=== PATIENT | female | born 1970 | race African-American/Black ===

== ENCOUNTER 2016-10-27 12:02 | Emergency (ER) | payer OTHER ==
[2016-10-27 12:10] VITALS: TEMP 98.4; BMI 30.9
[2016-10-27] MEDS ORDERED: KETOROLAC TROMETHAMINE 30 MG/1 ML VIAL IVPUSH ONE (13:40)
--- NOTE | 2016-10-27 13:40 | PDOC ---
History of Present Illness - History of Present Illness Initial Comments: 10/27/16 14:54 Patient is a 46 year old female with significant medical hx of HTN (currently untreated) who is presenting to the ED with lower back pain after cleaning three days ago. The patient complains of lower back pain that is localized to both sides of her lower back but is otherwise non-radiating. She reports it is constant that worsens with movement, including sitting down, standing up, and walking. The patient states that shes so uncomfortable she cant sit on the bed and had difficulty getting to and from the bathroom earlier today. Patient has taken aleve for her pain with little relief. Denies any dysuria, hematuria, fever, chills, abdominal pain, nausea, vomiting, diarrhea, and recent trauma. Patient notes that this happened to her in the past one year ago after cleaning a house but it wasnt as bad as it is now. The patient also reports she hasnt taken her medication for hypertension for the past two months because the medication caused her to lose her hair. Patient s blood pressure upon repeat vitals were 166/119. Social Hx: Occasional tobacco use and alcohol use. <Mari Rodas - Last Filed: 10/27/16 14:53> - General History Source: Patient, Old Records Exam Limitations: No Limitations <Gunjan Leggett - Last Filed: 10/27/16 16:53> - General Chief Complaint: Back Pain Stated Complaint: BACK PAIN/HIGH BP 210/127 Time Seen by Provider: 10/27/16 12:26 Past History <Mari Rodas - Last Filed: 10/27/16 14:53> - Past Medical History Diabetes: Yes (PRE-DIABETIC: 2011) HTN: Yes - Surgical History Abdominal Surgery: Yes (LEEP) - Psycho/Social/Smoking Cessation Hx Anxiety: No Suicidal Ideation: No Smoking History: Current some day smoker Have you smoked in the past 12 months: Yes Number of Cigarettes Smoked Daily: 2 Information on smoking cessation initiated: Yes 'Breaking Loose' booklet given: 10/27/16 Hx Alcohol Use: No Drug/Substance Use Hx: No Substance Use Type: None <Gunjan Leggett - Last Filed: 10/27/16 16:53> - Past Medical History Allergies/Adverse Reactions: Allergies Allergy/AdvReac Type Severity Reaction Status Date / Time No Known Allergies Allergy Verified 10/27/16 12:03 Home Medications: Ambulatory Orders Cyclobenzaprine HCl [Flexeril 10 mg] 10 mg PO BID PRN #14 tablet 10/27/16 Nifedipine [Procardia Xl] 30 mg PO DAILY #30 tab.er.24 10/27/16 Review of Systems - Review of Systems Comments:: 10/27/16 14:54 GENERAL/CONSTITUTIONAL: No fever or chills. No weakness. HEAD, EYES, EARS, NOSE AND THROAT: No change in vision. No ear pain or discharge. No sore throat. CARDIOVASCULAR: No chest pain or shortness of breath. RESPIRATORY: No cough, wheezing, or hemoptysis. GASTROINTESTINAL: No nausea, vomiting, diarrhea or constipation. GENITOURINARY: No dysuria, frequency, or change in urination. MUSCULOSKELETAL: Lower back pain. No joint or muscle swelling or pain. No neck pain. ENDOCRINE: No increased thirst. No abnormal weight change. SKIN: No rash NEUROLOGIC: No headache, vertigo, loss of consciousness, or change in strength/ sensation. <Mari Rodas - Last Filed: 10/27/16 14:53> *Physical Exam - Vital Signs Last Vital Signs Temp Pulse Resp BP Pulse Ox 98.4 F 71 18 210/127 100 10/27/16 12:04 10/27/16 12:04 10/27/16 12:04 10/27/16 12:04 10/27/16 12:04 - Physical Exam Comments: 10/27/16 14:55 GENERAL: Awake, alert, and fully oriented, in no acute distress HEAD: No signs of trauma EYES: PERRLA, EOMI, sclera anicteric, conjunctiva clear ENT: Auricles normal inspection, hearing grossly normal, nares patent, oropharynx clear without exudates. Moist mucosa NECK: Normal ROM, supple, no lymphadenopathy, JVD, or masses LUNGS: Breath sounds equal, clear to auscultation bilaterally. No wheezes, and no crackles HEART: Regular rate and rhythm, normal S1 and S2, no murmurs, rubs or gallops ABDOMEN: Soft, nontender, normoactive bowel sounds. No guarding, no rebound. No masses EXTREMITIES: Normal range of motion, no edema. No clubbing or cyanosis. No cords, erythema, or tenderness MUSCULOSKELETAL:Tenderness to palpation of the lower back just above gluteal muscles. No bony abnormalities, no crepitus. NEUROLOGICAL: Cranial nerves II through XII grossly intact. Normal speech, normal gait SKIN: Warm, Dry, normal turgor, no rashes or lesions noted. HEMATOLOGIC/LYMPHATIC: No anemia, easy bleeding, or history of blood clots. ALLERGIC/IMMUNOLOGIC: No hives or skin allergy. <Mari Rodas - Last Filed: 10/27/16 14:53> - Vital Signs Last Vital Signs Temp Pulse Resp BP Pulse Ox 98.4 F 71 18 210/127 100 10/27/16 12:04 10/27/16 12:04 10/27/16 12:04 10/27/16 12:04 10/27/16 12:04 <Gunjan Leggett - Last Filed: 10/27/16 16:53> ED Treatment Course - Medications Given in the ED: ED Medications Discontinued Medications Generic Name Dose Route Start Last Admin Trade Name Freq PRN Reason Stop Dose Admin Ketorolac Tromethamine 30 mg 10/27/16 13:40 10/27/16 14:42 Toradol Injection - IVPUSH 10/27/16 13:41 30 mg ONCE ONE Administration <Mari Rodas - Last Filed: 10/27/16 14:53> - LABORATORY CBC & Chemistry Diagram: 10/27/16 14:55 10/27/16 14:55 <Gunjan Leggett - Last Filed: 10/27/16 16:53> Medical Decision Making - Medical Decision Making 10/27/16 13:42 46 y/o female with h/o [id number] with meds-presents to the ED with c/o atraumatic LBP and is found to be markedly hypertensive. DDx includes but is not limited to: muscle spasm, disc herniation, renal failure, electrolyte abnormality. Plan: 1. Baseline labs 2. Pain management 3. BP control 4. Observe and re-evaluate 10/27/16 16:49 Addendum: Labs were reviewed and are noted in the EMR. The patient received toradol is a small amount of relief. Procardia XL 30mg was given in the ED. The patient will be discharged home with Rx for flexeril and procardia XL. I have stressed the importance of follow-up with her PCP within the next week for BP monitoring. Return to the ED if Sx persist, worsen or new Sx arise. <Gunjan Leggett - Last Filed: 10/27/16 16:53> *DC/Admit/Observation/Transfer - Attestations Scribe Attestion: 10/27/16 14:57 Documentation prepared by Mari Rodas, acting as medical science liaison for Gunjan Leggett MD. <Mari Rodas - Last Filed: 10/27/16 14:53> - Discharge Dispostion Admit: No - Attestations Physician Attestion: 10/27/16 13:43 I, Dr. Gunjan Leggett, attest that the scribes documentation that appears above has been prepared under my direction and personally reviewed by me in its entirety. I confirmed that the note above accurately reflects all work, treatment, procedures, and medical decision-making performed by me. <Gunjan Leggett - Last Filed: 10/27/16 16:53> Diagnosis at time of Disposition: Low back pain, Hypertension - Discharge Dispostion Disposition: HOME Condition at time of disposition: Stable - Prescriptions Prescriptions: Cyclobenzaprine HCl [Flexeril 10 mg] 10 mg PO BID PRN #14 tablet PRN Reason: Pain Level 6-10 Nifedipine [Procardia Xl] 30 mg PO DAILY #30 tab.er.24 - Referrals Referrals: Anitha Cardenas MD [Primary Care Provider] - - Patient Instructions Printed Discharge Instructions: DI for Malignant Hypertension, DI for Low Back Pain Additional Instructions: Your blood pressure is markedly elevated. You are being prescribed procardia XL 30mg--take one tablet daily and follow-up with your primary carephysician within one week. Return to the ED if your symptoms persist, worsen or new symptoms arise.
[2016-10-27] MEDS ORDERED: NIFEdipine E.R. 30 MG TABLET (FP) PO SCH (13:45)
[2016-10-27] MEDS ORDERED: KETOROLAC TROMETHAMINE 30 MG/1 ML VIAL ONE (14:40)
[2016-10-27 14:55] VITALS: BP 168/90; PULSE 67
[2016-10-27 15:07] LABS: BASOPHIL 0.4 % (0-2.0); EOSINOPHIL 0.8 % (0-4.5); MCH 29.8 pg (25.7-33.7); MEAN CELL VOLUME 90.4 fl (80-96); MEAN PLT VOLUME 7.7 fl (7.5-11.1); PLATELET COUNT 280 K/MM3 (134-434)
[2016-10-27 15:29] LABS: COCKROFT - GAULT 98.5235; CREATININE 0.9 mg/dL (0.55-1.02)
[2016-10-27] MEDS ORDERED: CYCLOBENZAPRINE HCL 10 MG TABLET (FP) PO ONE (16:43)
[2016-10-27] MEDS ORDERED: CYCLOBENZAPRINE HCL 10 MG TABLET (FP) ONE (17:24)
--- NOTE | 2016-11-04 14:43 | EKG ---
Test Reason : Blood Pressure : / mmHG Vent. Rate : 076 BPM Atrial Rate : 076 BPM P-R Int : 200 ms QRS Dur : 096 ms QT Int : 422 ms P-R-T Axes : 040 030 042 degrees QTc Int : 474 ms NORMAL SINUS RHYTHM POSSIBLE LEFT ATRIAL ENLARGEMENT BORDERLINE ECG NO PREVIOUS ECGS AVAILABLE Confirmed by CHAN COOK MD ([id number]) on 11/04/2016 2:43:17 PM Referred By: Confirmed By:CHAN COOK MD
== END 2016-10-27 18:12 | disposition home or self-care (01) ==
LOC: JER 12:02
PROC: 3E0333Z Introduction of Anti-inflammatory into Peripheral Vein, Percutaneous Approach (ICD-10-PCS; principal; 2016-10-27)
DX: M54.5 Low back pain (principal); I10 Essential (primary) hypertension; F17.210 Nicotine dependence, cigarettes, uncomplicated
CPT/HCPCS: 36415; 80048; 85025; 93005; 93010; 96374; 99282-25

== ENCOUNTER 2017-01-05 18:59 | Emergency (ER) | payer OTHER ==
[2017-01-05 19:18] VITALS: BP 156/102; PULSE 102; TEMP 98.2; BMI 41.4
--- NOTE | 2017-01-05 21:06 | PDOC ---
History of Present Illness - General Chief Complaint: Pain Stated Complaint: BACK PAIN Time Seen by Provider: 01/05/17 21:05 History Source: Patient Exam Limitations: No Limitations - History of Present Illness Initial Comments: 01/05/17 21:30 46F with pmh of chronic lower back pain and HTN presents with new 4 days-old exacerbation of her lower back pain radiating to her left leg to above the back of the knee. She was helping her sister lifting some light objects when the pain was triggered. The patient rates the pain 10/10 and has to stay bent over to mediate the intensity of the pain. Took a neighbor's percocet yesterday "which didn't do anything, 3xaleve today and an "unknown purple pill which may be morphine, 30mg" from her sister this morning. Patient is on Cyclobenzaprine 10mg (took one today) and lisinopril but only takes it every two days because she complains it makes her hair fall off like other blood pressure medications. Past History - Past Medical History Allergies/Adverse Reactions: Allergies Allergy/AdvReac Type Severity Reaction Status Date / Time No Known Allergies Allergy Verified 01/05/17 19:15 Home Medications: Ambulatory Orders Cyclobenzaprine HCl [Flexeril 10 mg] 10 mg PO BID PRN #14 tablet 10/27/16 Nifedipine [Procardia Xl] 30 mg PO DAILY #30 tab.er.24 10/27/16 Methocarbamol [Robaxin -] 500 mg PO BID #14 tablet 01/06/17 Diabetes: Yes (PRE-DIABETIC: 2011) HTN: Yes - Surgical History Abdominal Surgery: Yes (LEEP) - Psycho/Social/Smoking Cessation Hx Anxiety: No Suicidal Ideation: No Smoking History: Current every day smoker Have you smoked in the past 12 months: Yes Number of Cigarettes Smoked Daily: 10 Information on smoking cessation initiated: No 'Breaking Loose' booklet given: 10/27/16 Hx Alcohol Use: Yes Drug/Substance Use Hx: Yes (Marijuana) Substance Use Type: None Review of Systems - Review of Systems Constitutional: No: Symptoms Reported HEENTM: No: Symptoms Reported Respiratory: No: Symptoms reported Cardiac (ROS): No: Symptoms Reported ABD/GI: No: Symptoms Reported : No: Symptoms Reported Musculoskeletal: Yes: See HPI Integumentary: No: Symptoms Reported Neurological: No: Symptoms reported All Other Systems: Reviewed and Negative *Physical Exam - Vital Signs Last Vital Signs Temp Pulse Resp BP Pulse Ox 98.2 F 102 H 20 156/102 100 01/05/17 19:15 01/05/17 19:15 01/05/17 19:15 01/05/17 19:15 01/05/17 19:15 - Physical Exam General Appearance: Yes: Nourished, Appropriately Dressed, Obese. No: Mild Distress HEENT: positive: EOMI, [place], Normal ENT Inspection Neck: positive: Trachea midline. negative: Tender Respiratory/Chest: positive: Lungs Clear, Normal Breath Sounds. negative: Chest Tender Cardiovascular: positive: Regular Rhythm, Regular Rate, S1, S2 Musculoskeletal: positive: Muscle Spasm. negative: CVA Tenderness Extremity: positive: Normal Capillary Refill Medical Decision Making - Medical Decision Making 01/05/17 21:50 46F with pmh of sciatica and htn present with exacerbation of her lower back pain. Patient given 30mg toradol IV and 500mg robaxin PO. f/u with primary to get MRI done. Added 4mg morphine + robaxin rx 01/06/17 01:28 *DC/Admit/Observation/Transfer Diagnosis at time of Disposition: Ischiatic hernia - Discharge Dispostion Disposition: HOME Admit: No - Prescriptions Prescriptions: Methocarbamol [Robaxin -] 500 mg PO BID #14 tablet - Patient Instructions Printed Discharge Instructions: DI for Sciatica, Sciatica (Alternative Therapy)
--- NOTE | 2017-01-05 21:10 | PDOC ---
Attending Attestation - Resident Resident Name: PumaChuck - ED Attending Attestation I have performed the following: I have examined & evaluated the patient, The case was reviewed & discussed with the resident, I agree w/resident's findings & plan, Exceptions are as noted - HPI HPI: 46 yo F history prior low back pain presents with L low back pain x1 day. She states she was treated for the same a few months ago, responded well to NSAIDs. No recent trauma. No weakness, numbness. No recent fevers. She has flexeril from prior back pain, which did not help. She has followed up with her PMD outpatient, who recommended MRI, but she has not had it yet. - Physicial Exam PE: GENERAL: Awake, alert, and fully oriented, in no acute distress HEAD: No signs of trauma EYES: PERRLA, EOMI, sclera anicteric, conjunctiva clear ENT: Auricles normal inspection, hearing grossly normal, nares patent, oropharynx clear without exudates. Moist mucosa NECK: Normal ROM, supple, no lymphadenopathy, JVD, or masses LUNGS: Breath sounds equal, clear to auscultation bilaterally. No wheezes, and no crackles HEART: Regular rate and rhythm, normal S1 and S2, no murmurs, rubs or gallops ABDOMEN: Soft, nontender, normoactive bowel sounds. No guarding, no rebound. No masses EXTREMITIES: Normal range of motion, no edema. No clubbing or cyanosis. No cords, erythema, or tenderness NEUROLOGICAL: Cranial nerves II through XII grossly intact. Normal speech, normal gait SKIN: Warm, Dry, normal turgor, no rashes or lesions noted. SPINE: No midline tenderness. +L lumbar paraspinal soft tissue tenderness. - Medical Decision Making Low back pain with sciatica. Will treat with muscle relaxers and NSAIDs.
[2017-01-05] MEDS ORDERED: KETOROLAC TROMETHAMINE 30 MG/1 ML VIAL IVPUSH ONE (21:27)
[2017-01-05] MEDS ORDERED: KETOROLAC TROMETHAMINE 30 MG/1 ML VIAL ONE (21:40)
[2017-01-05] MEDS ORDERED: METHOCARBAMOL 500 MG TABLET PO ONE (21:46)
[2017-01-05] MEDS ORDERED: METHOCARBAMOL 500 MG TABLET ONE (21:48)
[2017-01-05] MEDS ORDERED: morphine CARPU-JECT 4 MG/1 ML DISP.SYRIN IVPUSH ONE (23:58)
[2017-01-06] MEDS ORDERED: morphine CARPU-JECT 2 MG/1 ML DISP.SYRIN ONE (00:01)
== END 2017-01-06 01:36 | disposition home or self-care (01) ==
LOC: JER 18:59
PROC: 3E033NZ Introduction of Analgesics, Hypnotics, Sedatives into Peripheral Vein, Percutaneous Approach (ICD-10-PCS; principal; 2017-01-05)
PROC: 3E0333Z Introduction of Anti-inflammatory into Peripheral Vein, Percutaneous Approach (ICD-10-PCS; 2017-01-05)
DX: K45.8 Other specified abdominal hernia without obstruction or gangrene (principal); M54.42 Lumbago with sciatica, left side
CPT/HCPCS: 96374; 96375; 99282-25

== ENCOUNTER 2017-03-12 23:09 | Emergency (ER) | payer OTHER ==
[2017-03-13 00:20] VITALS: BP 160/96; PULSE 101; TEMP 98.3; BMI 39.9
--- NOTE | 2017-03-13 00:29 | PDOC ---
History of Present Illness - General Chief Complaint: Injury Stated Complaint: PAIN Time Seen by Provider: 03/13/17 00:14 - History of Present Illness Initial Comments: 03/13/17 00:25 Patient is a 47 y.o. female with a PMH of HTN who presents c/o RLE pain following a mechanical loss of balance and sliding down a carpeted staircase in which her RLE hyper-extended behind her and she landed and he RLE folded underneath her. Patient denies any head trauma or LOC. Patient further denies any chest pain or shortness of breath. At baseline patient ambulates with a cane 2/2 to her sciatica. Surgical: LEEP NKDA Social: 2-3 cigarettes daily; (+) marijuana use PMD: Previously Dr. Anitha Rosen - requests new referral Past History - Past Medical History Allergies/Adverse Reactions: Allergies Allergy/AdvReac Type Severity Reaction Status Date / Time No Known Allergies Allergy Verified 03/13/17 00:20 Home Medications: Ambulatory Orders Cyclobenzaprine HCl [Flexeril 10 mg] 10 mg PO BID PRN #14 tablet 10/27/16 Nifedipine [Procardia Xl] 30 mg PO DAILY #30 tab.er.24 10/27/16 Methocarbamol [Robaxin -] 500 mg PO BID #14 tablet 01/06/17 Tramadol HCl [Tramadol HCl ER] 100 mg PO DAILY PRN #10 tab.er.24h MDD 1 tablet 03/13/17 Diabetes: Yes (PRE-DIABETIC: 2011) HTN: Yes - Surgical History Abdominal Surgery: Yes (LEEP) - Immunization History Immunization Up to Date: No - Suicide/Smoking/Psychosocial Hx Smoking History: Current every day smoker Have you smoked in the past 12 months: Yes Number of Cigarettes Smoked Daily: 10 Information on smoking cessation initiated: No 'Breaking Loose' booklet given: 10/27/16 Hx Alcohol Use: Yes Drug/Substance Use Hx: Yes Substance Use Type: Alcohol, Marijuana Review of Systems - Review of Systems Constitutional: No: Chills, Fever Respiratory: No: Shortness of Breath Cardiac (ROS): No: Chest Pain All Other Systems: Reviewed and Negative *Physical Exam - Vital Signs Last Vital Signs Temp Pulse Resp BP Pulse Ox 98.3 F 101 H 19 160/96 97 03/13/17 00:14 03/13/17 00:14 03/13/17 00:14 03/13/17 00:14 03/13/17 00:14 - Physical Exam General Appearance: Yes: Nourished, Appropriately Dressed Respiratory/Chest: positive: Lungs Clear Cardiovascular: positive: S1, S2 Extremity: positive: Pelvis Stable, Other (Decreased ROM of RLE; neurovascularly intact; palpable dorsalis pedis and femoral pulses in RLE). negative: Normal Range of Motion Integumentary: positive: Warm Medical Decision Making - Medical Decision Making 03/13/17 00:32 Patient is a 47 y.o. female who presents following a mechanical fall down a staircase in which she hyperextended her RLE behind her. On PE patient is neurovasculary intact in RLE with significant decreased ROM. PLAN: 1. RLE XR 2. Pelvic XR Reassess 03/13/17 04:06 All XR negative for acute fracture or dislocation. Patient discharged home with referral to PCP, Tramadol for pain and return precautions. *DC/Admit/Observation/Transfer Diagnosis at time of Disposition: Right leg pain - Discharge Dispostion Disposition: HOME Condition at time of disposition: Fair Admit: No - Prescriptions Prescriptions: Tramadol HCl [Tramadol HCl ER] 100 mg PO DAILY PRN #10 tab.er.24h MDD 1 tablet PRN Reason: Moderate Pain - Referrals Referrals: Galen Sifuentes MD [Staff Physician] - - Patient Instructions Printed Discharge Instructions: Muscle Strain Additional Instructions: A referral to a primary care physician has been provided to you, please follow up for detention management of your pain. Also a 10 day prescription of pain medication has been called to your pharmacy. Please return to the Emergency Department for any worsening or concerning symptoms.
--- NOTE | 2017-03-13 00:43 | PDOC ---
Attending Attestation - Resident Resident Name: Gege Taylor - ED Attending Attestation I have performed the following: I have examined & evaluated the patient, The case was reviewed & discussed with the resident, I agree w/resident's findings & plan, Exceptions are as noted - HPI HPI: 03/13/17 00:40 s/p fall. Hyperextended her right leg. c/o pain - Physicial Exam PE: 03/13/17 00:41 *Physical Exam General Appearance: Yes: Appropriately Dressed. No: Apparent Distress, Intoxicated HEENT: positive: EOMI, [place], Normal ENT Inspection, Normal Voice, TMs Normal, Pharynx Normal. negative: Pale Conjunctivae, Photophobia, Scleral Icterus (R), Scleral Icterus (L) Neck: positive: Trachea midline, Normal Thyroid, Supple. negative: Tender, Rigid, Carotid bruit, Stridor, Lymphadenopathy (R), Lymphadenopathy (L), Thyromegaly Respiratory/Chest: positive: Lungs Clear, Normal Breath Sounds. negative: Chest Tender, Respiratory Distress, Accessory Muscle Use, Labored Respiration, RES, Crackles, Rales, Rhonchi, Stridor, Wheezing, Dullness Cardiovascular: positive: Regular Rhythm, Regular Rate, S1, S2. negative: Edema , JVD, Murmur, Bradycardia, Tachycardia Vascular Pulses: Dorsalis-Pedis (R): 2+, Doralis-Pedis (L): 2+ Gastrointestinal/Abdominal: positive: Normal Bowel Sounds, Flat, Soft. negative : Tender, Organomegaly, Pulsatile Mass, Increased Bowel Sounds, Decreased BS, Distended, Guarding, Rebound, Hernia, Hepatomegaly, Spleenomegaly Lymphatic: negative: Adenopathy, Tenderness Musculoskeletal: positive: right knee swelling, no deformity negative: CVA Tenderness, Decreased Range of Motion Extremity: positive: Normal Capillary Refill, Normal Inspection, Normal Range of Motion, Pelvis Stable. negative: Tender, Pedal Edema, Swelling, Erythema Integumentary: positive: Normal Color, Dry, Warm. negative: Cyanotic, Erythema , Jaundice, Rash Neurologic: positive: sprayer hand II-XII NML intact, Fully Oriented, Alert, Normal Mood/ Affect, Motor Strength 5/5. negative: EOM Palsy, Facial Droop, Sensory Deficit* Physical Exam
[2017-03-13] MEDS ORDERED: KETOROLAC TROMETHAMINE 60 MG/2 ML VIAL IM ONE (02:51)
[2017-03-13] MEDS ORDERED: KETOROLAC TROMETHAMINE 60 MG/2 ML VIAL ONE (02:53)
== END 2017-03-13 04:28 | disposition home or self-care (01) ==
LOC: SUPCPDRO 23:09 → JER 23:09
PROC: 3E0233Z Introduction of Anti-inflammatory into Muscle, Percutaneous Approach (ICD-10-PCS; principal; 2017-03-12)
DX: S86.811A Strain of other muscle(s) and tendon(s) at lower leg level, right leg, initial encounter (principal); I10 Essential (primary) hypertension; E11.9 Type 2 diabetes mellitus without complications; F17.210 Nicotine dependence, cigarettes, uncomplicated; W10.8XXA Fall (on) (from) other stairs and steps, initial encounter; Y93.89 Activity, other specified; Y92.89 Other specified places as the place of occurrence of the external cause; Y99.8 Other external cause status
CPT/HCPCS: 72170-TC; 73552-TC-RT; 73562-TC-RT; 73590-TC-RT; 84703; 99281-25

== ENCOUNTER 2018-07-13 13:49 | Emergency (ER) | payer OTHER ==
--- NOTE | 2018-07-13 14:03 | PDOC ---
Rapid Medical Evaluation Medical Evaluation: Allergies Allergy/AdvReac Type Severity Reaction Status Date / Time No Known Allergies Allergy Verified 03/13/17 00:20 I have performed a brief in-person evaluation of this patient. The patient presents with a chief complaint of: c/o sciatic pain for years, worsening past few days; has LBP radiating down BLE legs (L>R); took Ibuprofen 800 yesterday with no relief; denies saddle/groin parethesia, bowel/bladder incontinence; has not seen any specialist yet regarding her sciatica and has never had imaging of her spine done Pertinent physical exam findings: In NAD, ambulatory I have ordered the following: Nothing The patient will proceed to the ED for further evaluation. 07/13/18 14:02
[2018-07-13 14:06] VITALS: BP 153/99; PULSE 86; TEMP 98.1; BMI 39.9
--- NOTE | 2018-07-13 15:07 | PDOC ---
History of Present Illness - General Chief Complaint: Back Pain Stated Complaint: SICK Time Seen by Provider: 07/13/18 14:02 History Source: Patient Exam Limitations: No Limitations - History of Present Illness Initial Comments: 07/13/18 15:08 Patient came to emergency department with acute on chronic exacerbation of low to mid back pain. has suffered with intermittent back spasm and trouble over the past years and has come to emergency department on a few different this occasions. Has no antispasmodics and anti-inflammatories in the past, is also uses opioid pain medications in the past. Denies any recent,, any changes in exercise, heavy lifting or other known exacerbated. Has not discussed with her PMD. Denies numbness or tingling to feet, denies problems with bowel or bladder. Has used ibuprofen only for pain relief with minimal resolved. Pain Location: reports: back Method of Injury: Yes: unknown Modifying Factors: improves with: None Loss of Consciousness: no loss of consciousness Associated Symptoms (Fall): denies symptoms Past History - Travel Traveled outside of the country in the last 30 days: No Close contact w/someone who was outside of country & ill: No - Past Medical History Allergies/Adverse Reactions: Allergies Allergy/AdvReac Type Severity Reaction Status Date / Time No Known Allergies Allergy Verified 03/13/17 00:20 Home Medications: Ambulatory Orders Cyclobenzaprine HCl 10 mg PO Q8H PRN #14 tablet 07/13/18 Hydrochlorothiazide [Hctz -] 25 mg PO DAILY 07/13/18 Lisinopril [Prinivil] 10 mg PO DAILY 07/13/18 Metformin HCl [Glucophage] 1,000 mg PO ASDIR 07/13/18 Naproxen [Naprosyn -] 500 mg PO BID #30 tablet 07/13/18 Nifedipine [Procardia Capsule -] 10 mg PO TID 07/13/18 COPD: No Diabetes: Yes (PRE-DIABETIC: 2011) HTN: Yes - Surgical History Abdominal Surgery: Yes (LEEP) - Immunization History Immunization Up to Date: No - Suicide/Smoking/Psychosocial Hx Smoking History: Former smoker Have you smoked in the past 12 months: No Number of Cigarettes Smoked Daily: 10 Information on smoking cessation initiated: No 'Breaking Loose' booklet given: 10/27/16 Hx Alcohol Use: No Drug/Substance Use Hx: Yes Substance Use Type: Alcohol, Marijuana Review of Systems - Review of Systems Able to Perform ROS?: Yes Is the patient limited Greek proficient: Yes Constitutional: Yes: Symptoms Reported, See HPI, Malaise Respiratory: Yes: Symptoms reported Musculoskeletal: Yes: Symptoms Reported, See HPI, Back Pain, Muscle Pain Neurological: Yes: See HPI. No: Symptoms reported, Headache, Paresthesia, Weakness All Other Systems: Reviewed and Negative *Physical Exam - Vital Signs Last Vital Signs Temp Pulse Resp BP Pulse Ox 98.1 F 86 16 153/99 97 07/13/18 14:03 07/13/18 14:03 07/13/18 14:03 07/13/18 14:03 07/13/18 14:03 - Physical Exam General Appearance: Yes: Nourished, Appropriately Dressed, Mild Distress HEENT: positive: [place], Normal ENT Inspection, TMs Normal Neck: positive: Tender, Supple, Lymphadenopathy (R), Lymphadenopathy (L) Respiratory/Chest: positive: Lungs Clear Musculoskeletal: positive: Normal Inspection, Decreased Range of Motion, Muscle Spasm (tense tight musculature in the paravertebral spinous muscles at T12-L1 area. Worse on the right than the left. Has no true bone tenderness, range of motion is limited secondary to the same muscle tensions). negative: CVA Tenderness, CVA Tenderness (R), CVA Tenderness (L), Vertebral Tenderness Extremity: positive: Normal Capillary Refill. 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 NML intact, Fully Oriented, Alert, Normal Mood/ Affect, Normal Response, Motor Strength 5/5 Moderate Sedation - Procedure Monitoring Vital Signs: Procedure Monitoring Vital Signs Temperature 98.1 F 07/13/18 14:03 Pulse Rate 86 07/13/18 14:03 Respiratory Rate 16 07/13/18 14:03 Blood Pressure 153/99 07/13/18 14:03 O2 Sat by Pulse Oximetry (%) 97 07/13/18 14:03 Progress Note - Progress Note Progress Note: Recurrent back strain, will treat with NSAIDs and cyclobenzaprine and referred to orthopedist for further evaluation and possible treatment *DC/Admit/Observation/Transfer Diagnosis at time of Disposition: Low back pain Qualifiers: Chronicity: acute Back pain laterality: bilateral Sciatica presence: with sciatica Sciatica laterality: sciatica of left side Qualified Code(s): M54.42 - Lumbago with sciatica, left side - Discharge Dispostion Disposition: HOME Condition at time of disposition: Stable Decision to Admit order: No - Referrals Referrals: Sachin Forte MD [Staff Physician] - - Patient Instructions Printed Discharge Instructions: DI for Back Strain or Sprain Additional Instructions: Rest, no heavy lifting or exercise until pain is resolved Hot soaks to neck and low back as often as possible/hot showers or Jacuzzis No massage or therapy until spasm is gone Continue Naprosyn 500 mg tablet, 1 tablet every 8 hours for the next 3 days then as needed for pain and swelling Cyclobenzaprine 1-10mg every 8 hours as needed for spasm If not significant improvement within 24 hours with medication and rest regime, followup with private physician for change in medications and /or therapy. - Post Discharge Activity Forms/Work/School Notes: Back to Work
[2018-07-13] MEDS ORDERED: KETOROLAC TROMETHAMINE 60 MG/2 ML VIAL IM ONE (15:16)
[2018-07-13] MEDS ORDERED: KETOROLAC TROMETHAMINE 60 MG/2 ML VIAL ONE (15:19)
== END 2018-07-13 15:23 | disposition home or self-care (01) ==
LOC: JERFT 13:49
PROC: 3E0233Z Introduction of Anti-inflammatory into Muscle, Percutaneous Approach (ICD-10-PCS; principal; 2018-07-13)
DX: M54.42 Lumbago with sciatica, left side (principal); I10 Essential (primary) hypertension; E11.9 Type 2 diabetes mellitus without complications; Z79.84 Long term (current) use of oral hypoglycemic drugs
CPT/HCPCS: 96372; 99281-25

== ENCOUNTER 2020-08-03 13:09 | Emergency (ER) | payer OTHER ==
[2020-08-03 13:27] VITALS: BP 95/74; PULSE 84; TEMP 98; BMI 89.1
[2020-08-03] MEDS ORDERED: KETOROLAC TROMETHAMINE 30 MG/1 ML VIAL IM ONE (14:17)
[2020-08-03] MEDS ORDERED: CYCLOBENZAPRINE HCL 10 MG TABLET (FP) PO ONE (14:17)
[2020-08-03] MEDS ORDERED: KETOROLAC TROMETHAMINE 30 MG/1 ML VIAL ONE (14:24)
[2020-08-03] MEDS ORDERED: CYCLOBENZAPRINE HCL 10 MG TABLET (FP) ONE (14:24)
== END 2020-08-03 15:26 | disposition home or self-care (01) ==
LOC: JERFT 13:09
PROC: 3E0233Z Introduction of Anti-inflammatory into Muscle, Percutaneous Approach (ICD-10-PCS; principal; 2020-08-03)
DX: M54.32 Sciatica, left side (principal)
CPT/HCPCS: 72100-TC-FY; 72170-TC-FY; 73502-TC-LT-FY; 99285-25

== ENCOUNTER 2020-12-04 12:59 | Emergency (ER) | payer OTHER ==
[2020-12-04 13:07] VITALS: BP 172/97; PULSE 83; TEMP 98.8; BMI 34.9
[2020-12-04] MEDS ORDERED: diazePAM 5 MG TABLET PO ONE (13:31)
[2020-12-04] MEDS ORDERED: KETOROLAC TROMETHAMINE 30 MG/1 ML VIAL IM ONE (13:31)
[2020-12-04] MEDS ORDERED: KETOROLAC TROMETHAMINE 30 MG/1 ML VIAL ONE (13:33)
[2020-12-04] MEDS ORDERED: diazePAM 5 MG TABLET ONE (13:33)
== END 2020-12-04 14:04 | disposition home or self-care (01) ==
LOC: JERFT 12:59
PROC: 3E0233Z Introduction of Anti-inflammatory into Muscle, Percutaneous Approach (ICD-10-PCS; principal; 2020-12-04)
DX: M54.42 Lumbago with sciatica, left side (principal)
CPT/HCPCS: 99284-25

== ENCOUNTER 2021-11-23 13:29 | Emergency (ER) | payer BC, OTHER ==
[2021-11-23 13:39] VITALS: BP 158/106; PULSE 85; TEMP 97.6; BMI 47.4
[2021-11-23] MEDS ORDERED: LIDOCAINE 5% TOPICAL PATCH TP ONE (14:21)
[2021-11-23] MEDS ORDERED: KETOROLAC TROMETHAMINE 30 MG/1 ML VIAL IM ONE (14:21)
[2021-11-23] MEDS ORDERED: LIDOCAINE 5% TOPICAL PATCH ONE (14:23)
[2021-11-23] MEDS ORDERED: KETOROLAC TROMETHAMINE 30 MG/1 ML VIAL ONE (14:23)
== END 2021-11-23 14:57 | disposition home or self-care (01) ==
LOC: JERFT 13:29
PROC: 3E0233Z Introduction of Anti-inflammatory into Muscle, Percutaneous Approach (ICD-10-PCS; principal; 2021-11-23)
DX: M54.32 Sciatica, left side (principal)
CPT/HCPCS: 99283-25